=== PATIENT | female | born 1965 | race Caucasian/White ===

== ENCOUNTER 2016-08-05 11:13 | Emergency (ER) | payer OTHER ==
[~2016-08-05] VITALS: Ht 154.9 cm; Wt 84.0 kg
[~2016-08-05 11:13] MED LIST: ALEVE220 MG PO; ASPIRIN81 M2 PO; BIOFLEX TABLET1 EACH PO; NOLVADEX20 MG PO; SYNTHROID50 MCG PO; VITAMIN D32000 UNI1 PO; ZOFRAN ODT4 MG PO
[2016-08-05 12:22] LABS: HEMATOCRIT 39.1 % (36.0-46.0); MEAN PLAT.VOLUME 10.2 uM^3 (9.5-12.4); PLATELET COUNT 283 K/uL (156-360); RBC DIS.WIDTH-CV 14.2 % (11.8-14.6); RBC DIS.WIDTH-SD 43.7 % (39-53); WHITE BLOOD COUNT 8.9 K/uL (4.1-10.2)
[2016-08-05 12:32] LABS: CHLORIDE 109 mEq/L (99-109); POTASSIUM 4.5 mEq/L (3.7-5.4); SODIUM 142 mEq/L (136-147)
[2016-08-05 12:33] LABS: D-DIMER ELISA 0.16 mg/L FEU (< 0.57); GLUCOSE 86 mg/dL (70-99)
[2016-08-05 12:35] LABS: ANION GAP 8 MEQ/L (2-14)
[2016-08-05 12:37] LABS: GFR ESTIMATE (CALCULATED) > 59 mL/min/
[2016-08-05 12:38] LABS: UREA NITROGEN (BUN) 13 mg/dL (9-23)
[2016-08-05 12:43] LABS: TROP-I INTERPRETATION NEGATIVE; TROPONIN-I < 0.01 ng/mL (0.0-0.30)
[2016-08-05 14:36] LABS: TROP-I INTERPRETATION NEGATIVE; TROPONIN-I < 0.01 ng/mL (0.0-0.30)
[2016-08-05] MEDS ORDERED: LOPRESSOR25 MG PO (14:44)
[2016-08-05] MEDS ORDERED: ATIVAN0.5 MG PO (14:44)
[2016-08-05 15:34] VITALS: BP 140/88
== END 2016-08-05 15:38 | disposition home or self-care (01) ==
LOC: EME 11:13
PROVIDERS: Emergency Medicine; Physician Assistant
DX: R00.2 Palpitations (principal); I10 Essential (primary) hypertension; F41.9 Anxiety disorder, unspecified; E03.9 Hypothyroidism, unspecified; Z85.3 Personal history of malignant neoplasm of breast
CPT/HCPCS: 71020; 80048; 84484; 85027; 85379; 93005; 99281; 99285

== ENCOUNTER 2017-05-18 10:17 | Emergency (ER) | payer OTHER ==
[~2017-05-18] VITALS: Ht 154.9 cm; Wt 81.6 kg
[~2017-05-18 10:17] MED LIST changes: +ATIVAN0.5 MG PO; +LOPRESSOR25 MG PO
[2017-05-18 11:20] LABS: HEMATOCRIT 40.6 % (36.0-46.0); MCH 28.7 PG (29.0-34.0); MCHC 32.8 G/DL (30.0-36.0); MCV 87.7 FL (83-99); MEAN PLAT.VOLUME 10.7 uM^3 (9.5-12.4); PLATELET COUNT 260 K/uL (156-360); RBC DIS.WIDTH-CV 13.4 % (11.8-14.6); RED BLOOD COUNT 4.63 M/uL (3.80-5.20); WHITE BLOOD COUNT 8.9 K/uL (4.1-10.2)
[2017-05-18 11:28] LABS: ADD MIUA? NO; BILIRUBIN NEGATIVE; BLOOD NEGATIVE; COLOR YELLOW ((YELLOW)); GLUCOSE (STRIP) NEGATIVE; KETONES NEGATIVE; LEUKOCYTES NEGATIVE; NITRITE NEGATIVE; PROTEIN (STRIP) NEGATIVE; UCUL ADDED? NO; UROBILINOGEN 0.2 MG/DL (0.2-1.0)
[2017-05-18 11:28] LABS: CHLORIDE 107 mEq/L (99-109); POTASSIUM 4.7 mEq/L (3.7-5.4); SODIUM 139 mEq/L (136-147)
[2017-05-18 11:30] LABS: GLUCOSE 108 mg/dL (70-99)
[2017-05-18 11:32] LABS: ANION GAP 8 MEQ/L (2-14); TOTAL BILIRUBIN 0.6 mg/dL (0.0-1.0)
[2017-05-18] MEDS ORDERED: MIRALAX17 GM PO (11:32)
[2017-05-18] MEDS ORDERED: MAGNESIUM250 MG PO (11:33)
[2017-05-18] MEDS ORDERED: LISINOPRIL10 MG PO (11:33)
[2017-05-18 11:34] LABS: ALKALINE PHOSPHATASE 63 IU/L (3-129); GFR ESTIMATE (CALCULATED) > 59 mL/min/
[2017-05-18] MEDS ORDERED: CALCIUM + D3 E1 EACH PO (11:34)
[2017-05-18 11:35] LABS: UREA NITROGEN (BUN) 12 mg/dL (9-23)
[2017-05-18] MEDS ORDERED: ATIVAN0.5 MG PO (11:35)
[2017-05-18] MEDS ORDERED: LIPITOR20 MG PO (11:35)
[2017-05-18 11:43] LABS: QUANTITATIVE HCG < 4.0 MIU/ML
[2017-05-18] MEDS ORDERED: ZOFRAN ODT4 MG PO (13:20)
[2017-05-18] MEDS ORDERED: BENTYL10 MG PO (13:20)
[2017-05-18 13:42] VITALS: BP 144/99
== END 2017-05-18 13:44 | disposition home or self-care (01) ==
LOC: EME 10:17
DX: R10.30 Lower abdominal pain, unspecified (principal); K44.9 Diaphragmatic hernia without obstruction or gangrene; K57.10 Diverticulosis of small intestine without perforation or abscess without bleeding; R19.5 Other fecal abnormalities; Z90.49 Acquired absence of other specified parts of digestive tract; Z85.3 Personal history of malignant neoplasm of breast; Z79.82 Long term (current) use of aspirin
CPT/HCPCS: 74177; 80053; 81003; 84702; 85027; 99281; 99283; J7030

== ENCOUNTER → 2017-06-21 | Outpatient (CLI) | payer OTHER ==
[~2017-06-21] VITALS: Ht 154.9 cm; Wt 82.5 kg
[~2017-06-21] MED LIST changes: +BENTYL10 MG PO; +CALCIUM + D3 E1 EACH PO; +LIPITOR20 MG PO; +LISINOPRIL10 MG PO; +MAGNESIUM250 MG PO; +MIRALAX17 GM PO; +SUPREP BOWEL P354 ML PO
== END | disposition home or self-care (01) ==
LOC: AMB 07:55
DX: Z12.11 Encounter for screening for malignant neoplasm of colon (principal); D12.2 Benign neoplasm of ascending colon; D12.4 Benign neoplasm of descending colon; K21.9 Gastro-esophageal reflux disease without esophagitis; E78.00 Pure hypercholesterolemia, unspecified; E03.9 Hypothyroidism, unspecified; Z85.820 Personal history of malignant melanoma of skin; Z85.3 Personal history of malignant neoplasm of breast; Z79.82 Long term (current) use of aspirin
CPT/HCPCS: 88305; 93005; J2250; J2405

== ENCOUNTER 2017-10-18 06:30 | Day surgery (SDC) | payer OTHER ==
[~2017-10-18] VITALS: Ht 154.9 cm; Wt 82.6 kg
[~2017-10-18 06:30] MED LIST changes: +FLONASE SENSIM9.9 ML BOTH NARES; -MAGNESIUM250 MG PO; +MAGNESIUM400 M1 PO
[2017-10-18 06:53] VITALS: BP 117/68
[2017-10-18] MEDS ORDERED: COLACE100 MG PO (11:45)
[2017-10-18] MEDS ORDERED: HYDROCODON-ACE1 EAC7 PO (11:47)
[2017-10-18] MEDS ORDERED: IBUPROFEN800 MG PO (11:47)
[2017-10-18] MEDS ORDERED: ZOFRAN4 MG PO (11:47)
[2017-10-18 12:39] VITALS: BP 126/59
[2017-10-18 13:39] VITALS: BP 128/61
[2017-10-18 15:12] VITALS: BP 119/68
== END 2017-10-18 15:12 | disposition home or self-care (01) ==
LOC: SDC 06:30
DX: N72 Inflammatory disease of cervix uteri (principal); D25.9 Leiomyoma of uterus, unspecified; N83.202 Unspecified ovarian cyst, left side; N83.201 Unspecified ovarian cyst, right side; K66.0 Peritoneal adhesions (postprocedural) (postinfection); Z85.3 Personal history of malignant neoplasm of breast; E03.9 Hypothyroidism, unspecified; Z79.82 Long term (current) use of aspirin; Z86.010 Personal history of colon polyps; Z80.51 Family history of malignant neoplasm of kidney; Z80.42 Family history of malignant neoplasm of prostate; Z80.3 Family history of malignant neoplasm of breast; Z80.8 Family history of malignant neoplasm of other organs or systems
CPT/HCPCS: 88307; J0131; J0690; J1170; J1885; J2250; J2405; J2710; J3010; J7643; Q0175; S0020